=== PATIENT | female | born 1995 | race Caucasian/White ===

== ENCOUNTER 2021-08-21 10:33 | Inpatient (IN) ==
[2021-08-21] MEDS ORDERED: LACTATED RINGER'S 1,000 ML IV PRN (12:02)
[2021-08-21] MEDS ORDERED: OXYTOCIN 30 UNITS/500 ML BAG IV PRN ×2 (12:02→14:59)
[2021-08-21 12:25] LABS: Hematocrit (blood only) 35.1 % (37-47); Hemoglobin 11.3 g/dL (12.0-16.0); Mean Corpuscular Hemoglobin 28.6 pg (25-34); Mean Corpuscular Hgb Conc 32.2 g/dL (32-36); Mean Corpuscular Volume 88.9 fL (80-100); Mean Platelet Volume 11.2 fL (7.4-10.4); Platelet Count 242 K/uL (130-400); RDW Coefficient of Variation 14.3 % (11.5-14.5); RDW Standard Deviation 47.1 fL (36.4-46.3); Red Blood Count 3.95 M/uL (4.2-5.4); White Blood Count 7.88 K/uL (4.8-10.8)
[2021-08-21] MEDS ORDERED: OXYTOCIN 10 UNITS/ML VIAL ONE (14:30)
[2021-08-21] MEDS ORDERED: miSOPROStoL 200 MCG TAB ONE (14:37)
[2021-08-21] MEDS ORDERED: LIDOCAINE 1% LOCAL 20 ML VIAL ONE (14:37)
[2021-08-21] MEDS ORDERED: METHYLERGONOVINE MALEATE 0.2 MG/ML AMP ONE (14:38)
[2021-08-21] MEDS ORDERED: SUPERCREAM 0.870% 15 GM JAR EXT PRN (14:59)
[2021-08-21] MEDS ORDERED: BENZOCAINE 20% AER SPR 82.5 GM CAN EXT PRN (14:59)
[2021-08-21] MEDS ORDERED: DIPHTHERIA/TETANUS/PERTUSSIS 0.5 ML SYR/VIAL IM ONE (14:59)
[2021-08-21] MEDS ORDERED: HYDROCORTISONE ACETATE 25 MG SUPP PR PRN (14:59)
[2021-08-21] MEDS ORDERED: METHYLERGONOVINE MALEATE 0.2 MG/ML AMP IM ONE (14:59)
[2021-08-21] MEDS ORDERED: bisacodyL 10 MG SUPP PR PRN (14:59)
[2021-08-21] MEDS ORDERED: miSOPROStoL 200 MCG TAB PR ONE (14:59)
[2021-08-21] MEDS ORDERED: ACETAMINOPHEN 325 MG TAB PO PRN (14:59)
[2021-08-21] MEDS: IBUPROFEN 600 MG TAB PO PRN (18:01)
[2021-08-21] MEDS ORDERED: hydrOXYzine HCl 10 MG TAB PO PRN (18:38)
[2021-08-21] MEDS: DOCUSATE SODIUM 100 MG CAP PO SCH (21:01)
[2021-08-22 07:10] LABS: Hemoglobin 11.5 g/dL (12.0-16.0); Mean Corpuscular Hemoglobin 28.9 pg (25-34); Mean Corpuscular Hgb Conc 32.9 g/dL (32-36); Mean Corpuscular Volume 87.9 fL (80-100); Mean Platelet Volume 11.1 fL (7.4-10.4); Platelet Count 237 K/uL (130-400); RDW Coefficient of Variation 14.3 % (11.5-14.5); RDW Standard Deviation 46.1 fL (36.4-46.3); Red Blood Count 3.98 M/uL (4.2-5.4); White Blood Count 13.62 K/uL (4.8-10.8)
[2021-08-22] MEDS: FERROUS SULFATE 325 MG TAB PO SCH (07:48)
[2021-08-22] MEDS: DOCUSATE SODIUM 100 MG CAP PO SCH ×2 (07:48→19:46)
[2021-08-22] MEDS: PRENATAL VITAMIN 1 TAB PO SCH (07:48)
--- NOTE | 2021-08-22 07:58 | Obstetrical Progress Note ---
Date of Service August 22, 2021 Subjective Ambulation: ambulating normally Voiding: no voiding problems Passing Gas:: Yes Diet Tolerance:: regular diet Lochia:: Moderate Feeding Type:: breast feeding Current Pain Level(1-10): 0 doing well plans for d/c Physical Exam Constitutional WD/WN, vitals as above comfortable abdomen soft and non-tender fundus firm no edema neg Gilberto's for d/c home Results & Data ([facility]) Vital Signs (Past 12 Hours) Vital Signs Temp Pulse Resp BP Pulse Ox 08/22/21 07:30 36.8 C 95 H 18 113/75 99 08/22/21 03:40 36.8 C 74 18 104/68 08/21/21 22:45 36.9 C 93 H 18 106/68 08/21/21 20:55 37.2 C 101 H 18 116/69 Laboratory Results 08/21/21 08/21/21 08/22/21 11:58 12:13 06:50 WBC 7.88 13.62 H RBC 3.95 L 3.98 L Hgb 11.3 L 11.5 L Hct 35.1 L 35.0 L MCV 88.9 87.9 MCH 28.6 28.9 MCHC 32.2 32.9 RDW Std Deviation 47.1 H 46.1 RDW Coeff of Lan 14.3 14.3 Plt Count 242 237 MPV 11.2 H 11.1 H SARS-CoV-2, RNA, NAAT NEGATIVE
[2021-08-22] MEDS: IBUPROFEN 600 MG TAB PO PRN (19:46)
[2021-08-22] MEDS ORDERED: bisacodyL 5 MG TABEC PO SCH (20:00)
[2021-08-23 06:04] LABS: Hematocrit (blood only) 34.8 % (37-47); Hemoglobin 11.5 g/dL (12.0-16.0)
[2021-08-23] MEDS: FERROUS SULFATE 325 MG TAB PO SCH (08:38)
[2021-08-23] MEDS: DOCUSATE SODIUM 100 MG CAP PO SCH (08:38)
[2021-08-23] MEDS: PRENATAL VITAMIN 1 TAB PO SCH (08:38)
--- NOTE | 2021-08-23 08:45 | Obstetrical Progress Note ---
Date of Service August 23, 2021 Assessment & Plan Admission and Anticipated Discharge Date Admission Date: August 21, 2021 Subjective Patient is seen and examined. She feels well, no complaints. Ambulating without dizziness Voiding without difficulty Tolerating regular diet with out N&V Bleeding is minimal No fever/ chills/ CP/ SOB/ N&V/ Leg pain Breast feeding without problems Vital Signs Temp Pulse Resp BP Pulse Ox 08/22/21 23:20 36.8 C 78 16 104/68 98 Lab Results 08/21/21 08/21/21 08/22/21 Range/Units 11:58 12:13 06:50 WBC 7.88 13.62 H (4.8-10.8) K/uL RBC 3.95 L 3.98 L (4.2-5.4) M/uL Hgb 11.3 L 11.5 L (12.0-16.0) g/dL Hct 35.1 L 35.0 L (37-47) % MCV 88.9 87.9 (80-100) fL MCH 28.6 28.9 (25-34) pg MCHC 32.2 32.9 (32-36) g/dL RDW Std Deviation 47.1 H 46.1 (36.4-46.3) fL RDW Coeff of Lan 14.3 14.3 (11.5-14.5) % Plt Count 242 237 (130-400) K/uL MPV 11.2 H 11.1 H (7.4-10.4) fL SARS-CoV-2, RNA, NAAT NEGATIVE (NEGATIVE) 08/23/21 Range/Units 05:50 WBC (4.8-10.8) K/uL RBC (4.2-5.4) M/uL Hgb 11.5 L (12.0-16.0) g/dL Hct 34.8 L (37-47) % MCV (80-100) fL MCH (25-34) pg MCHC (32-36) g/dL RDW Std Deviation (36.4-46.3) fL RDW Coeff of Lan (11.5-14.5) % Plt Count (130-400) K/uL MPV (7.4-10.4) fL SARS-CoV-2, RNA, NAAT (NEGATIVE) PE: General: Alert, orientedx3, NAD Abd: soft, NT, fundus firm, below Umbilicus Perineum intact, Lochia rubra minimal Ext; NT, no edema AP: 26 yo s/p , ppd# 1 VSS Afebrile doing well Continue routine care All questions were answered Discussed when to call D/C home , f/u in office Results & Data ([facility]) Vital Signs (Past 12 Hours) Vital Signs Temp Pulse Resp BP Pulse Ox 08/22/21 23:20 36.8 C 78 16 104/68 98
--- NOTE | 2021-09-05 10:21 | Delivery Summary ---
DATE OF DELIVERY: 08/21/2021 This is a 26-year-old G2, P1 who delivered a live female in cephalic presentation on 1. was a cephalic presentation. was delivered and placed on mother's abdomen. Delayed cord clamp was performed. The infant's weight is in the pediatric record. Apgars 8 and 9. Cord bl ood was obtained. Placenta spontaneously delivered. Inspection of the placenta shows normal grossly looking placenta with 3-vessel cord. Estimated blood loss was 450 mL. Inspection of the perineum shows a second-degree laceration, which w as repaired with Vicryl sutures in layers. Rectal exam post-repair showed good sphincter tone. No s utures are palpated in the rectum. All instruments are removed from the vagina and accounted for x2 including sponges, needles, and retr actors. The patient and mother are doing well in recovery. Job ID: [id number]
== END 2021-08-23 11:50 | disposition home or self-care (01) | DRG 807 ==
LOC: OPB 10:33 → 4S1 10:35 → 4S2 17:50
DX: Z3A.00 Weeks of gestation of pregnancy not specified; O70.1 Second degree perineal laceration during delivery; Z37.0 Single live birth